=== PATIENT | female | born 1960 | race Caucasian/White ===

== ENCOUNTER 2018-07-24 16:52 | Emergency (ER) | payer OTHER ==
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
[2018-07-24 18:11] VITALS: BP 140/104
== END 2018-07-24 18:09 | disposition home or self-care (01) ==
LOC: CED 16:52
DX: M79.671 Pain in right foot (principal); Z87.81 Personal history of (healed) traumatic fracture
CPT/HCPCS: 73630-PO; 99283-ER